=== PATIENT | male | born 1980 | race Caucasian/White ===

== ENCOUNTER 2018-01-18 17:16 | Emergency (ER) | payer SELFPAY ==
[~2018-01-18] VITALS: Ht 177.8 cm; Wt 117.9 kg
[2018-01-18 20:24] LABS: Red Cell Distribution Width 12.7 % (11.8-14.3)
[2018-01-18 20:26] LABS: Mean Corpuscular Hemoglobin 34.3 pg (28.0-32.0); Mean Corpuscular Hgb Conc. 34.7 g/dL (32.0-36.0); Mean Corpuscular Volume 98.9 fL (80.0-100.0); Platelet Count (auto) 231 10^3/uL (140-450); Red Blood Cells 4.65 10^6/uL (4.5-5.90); White Blood Cell 8.6 10^3/uL (4.4-10.8)
[2018-01-18 20:35] LABS: Basophils % (manual) 0 (0.0-2.0); Blast Cells 0; Metamyelocytes % 0; Myelocytes % 0; Promyelocytes % 0; Reactive Lymphocytes 0
[2018-01-18 20:38] LABS: Albumin 4.1 g/dL (3.4-5.0); Anion Gap 9 (5-15); Blood Urea Nitrogen 13 mg/dL (7-18); Calcium 9.4 mg/dL (8.5-10.1); Carbon Dioxide 23 mmol/L (21-32); Chloride 104 mmol/L (98-107); Glucose 103 mg/dL (74-106); Magnesium 2.4 mg/dL (1.6-2.6); Sodium 136 mmol/L (136-145)
[2018-01-18 20:41] LABS: Alanine Aminotransferase 76 U/L (16-61); Alkaline Phosphatase 46 U/L (45-117); Aspartate Aminotransferase 46 U/L (15-37); BUN/Creatinine Ratio 11.9; Bilirubin, Total 0.4 mg/dL (0.2-1.0); GFR African American 98 mL/min; GFR Non-African American 81 mL/min; INR 0.96 (0.9-1.15); Partial Thromboplastin Time 25.1 sec (23.78-33.04); Prothrombin Time 10.3 sec (9.27-12.13); Total Protein 8.3 g/dL (6.4-8.2)
[2018-01-18 21:11] LABS: Band Neutrophils % (manual) 2; Eosinophils % (manual) 1 (0-7); Lymphocytes % (manual) 30 (10.0-50.0); Monocytes % (manual) 12 (0-12)
[2018-01-19 00:06] VITALS: BP 130/85
== END 2018-01-19 01:05 | disposition home or self-care (01) ==
LOC: ER 17:22
DX: R00.0 Tachycardia, unspecified (principal); F41.9 Anxiety disorder, unspecified; Z88.0 Allergy status to penicillin
CPT/HCPCS: 36415; 71045; 80053; 83735; 83880; 84443; 84484; 85007; 85027; 85610; 85730

== ENCOUNTER 2025-01-19 16:44 | Emergency (ER) | payer BC ==
[~2025-01-19] VITALS: Ht 177.8 cm; Wt 127.5 kg
--- NOTE | 2025-01-19 18:54 | DVH ---
Clinical History: RIGHT LOWER EXTREMITY pain swelling Comparison: None Technique: Duplex Doppler evaluation of the deep venous system of the RIGHT lower extremity from the common femo ral vein to the popliteal vein including color Doppler and spectral/pulsed waveform analysis was perf ormed. Findings: The common femoral vein demonstrates appropriate compressibility and waveform variability. There is compressibility/patency of the great saphenous vein at the proximal thigh. The femoral vein demonstrates appropriate compressibility and waveform variability. The deep femoral vein demonstrates appropriate compressibility and waveform variability. The popliteal vein demonstrates appropriate compressibility and waveform variability. There is normal compressibility at the tibioperoneal trunk. Impression: 1. No RIGHT deep venous thrombosis. 2. If clinical concern/symptoms persist or worsen, short-interval follow-up study is suggested. 3. Multiple enlarged lymph nodes in the right inguinal area
[2025-01-19 18:55] LABS: Hemoglobin 14.7 g/dL (13.5-17.5)
[2025-01-19 18:57] LABS: Hematocrit 40.7 % (41.0-53.0); Mean Corpuscular Hemoglobin 35.3 pg (28.0-32.0); Mean Corpuscular Volume 97.6 fL (80.0-100.0); Nucleated Red Blood Cells % 0.1 %
[2025-01-19 19:09] LABS: Albumin 4.6 g/dL (3.2-4.8); Alkaline Phosphatase 51 U/L (46-116); Anion Gap 12 (5-15); BUN/Creatinine Ratio 13.9 (10.0-20.0); Bilirubin, Total 0.7 mg/dL (0.2-1.0); Blood Urea Nitrogen 14 mg/dL (9-23); Calcium 9.3 mg/dL (8.7-10.4); Carbon Dioxide 27 mmol/L (20-31); Chloride 101 mmol/L (98-107); Potassium 3.5 mmol/L (3.5-5.1); Sodium 140 mmol/L (136-145); Total Protein 7.5 g/dL (5.7-8.2)
[2025-01-19 19:14] LABS: Alanine Aminotransferase 50 U/L (7-40); Glucose 117 mg/dL (74-106)
[2025-01-19] MEDS ORDERED: CLIN1CAP70 PO (19:21)
--- NOTE | 2025-01-19 19:22 | ED.PDOC ---
Musculoskeletal HPI Comments HPI: Poor Historian. 44-year-old male presents to emergency department for evaluation of right anterior nettles redness and pain that he noticed yesterday. Denies any trauma or injury. Patient states he has subjective fever on Wednesday and took some Tylenol. Denies any other acute symptoms. Findings are consistent with cellulitis. Past Medical History: Denies any Past Surgical History: Denies any REVIEW OF SYSTEMS: CONSTITUTIONAL: Denies acute: fever, diaphoresis, chills, generalized weakness. HEAD: Denies acute: headache, photophobia Eyes: Denies acute: Double vision, vision loss, eye pain, eye discharge. EARS: Denies acute: tinnitus, hearing loss, ear discharge, ear pain, THROAT: Denies acute: sore throat, swelling, difficulty swallowing , pain with swallowing, change in voice. NECK: Denies acute: neck pain, neck swelling, stiff neck. HEART: Denies acute : chest pain, palpitations, LUNGS: Denies acute: SOB, wheezing, cough, hemoptysis ABDOMEN: Denies acute: abdominal pain, Nausea, Vomiting, diarrhea, melena , hematemesis, hematochezia SKIN: Denies acute: itchiness. EXTREMITIES: Denies acute: calf pain, numbness, tingling, weakness, Denies acute: Low back pain. Neuro: Denies acute: focal neurological deficit, motor or sensory focal neurological deficit, tremors, seizure like activity, confusion, dizziness, change in mental status, loss of bowel or bladder function, cauda equina like symptoms. : Denies acute: dysuria, hematuria, flank pain, increase in urinary frequency. PSYCH: Denies acute: hallucination, suicidal ideation, homicidal ideation. PHYSICAL EXAM: General: -----mild---acute distress, awake and alert. Head: normocephalic, atraumatic. No raccoon's eyes, no rm sign. Neck: supple, trachea is midline, no swelling. Throat: Normal phonation. Eyes:, no erythema, no purulent discharge, no proptosis, no icterus. Heart: regular rate, regular rhythm, no significant murmur appreciated. Lungs: no apparent respiratory distress, Able to speak in full sentences. No wheezing, no rhonchi, no crackles. No stridors Clear to auscultation bilaterally. Abdomen: non tender to palpation, non distended, soft, no guarding, no rebound, + bowel sounds. Neuro: Awake, Alert, oriented to name, self, situation, follows commands GCS=15. Speech is normal. Skin: no petechia, no purpura, no cyanosis, non-pale, not jaundice. Lower extremities: --right lower extremity 2/4 - Pitting edema no deformity, no calf TTP. Area of complaint: Right anterior nettles erythema and tenderness to palpation and pitting edema. No calf tenderness in the affected extremity. Makes eye contact. moves all four extremities. Face: no apparent facial droop. Ambulating in the ED independently. Pedal pulses are palpable. ED COURSE: DISCLAIMER: This medical document was created using an electronic medical record system with voice recognition software and computerized dictation system. Although this document has been carefully reviewed, there might still be some phonetic and typographical errors. Occasional wrong-word or "sound-alike" substitutions may have occurred due to the inherent limitations of voice recognition software. These areas are purely typographical due to imperfections of the software programs and do not reflect any compromise in the patient's medical care. Please read the chart carefully and recognize, using context, where these substitutions have occurred. Chief Complaint: Lower Extremity Time Seen by MD: 18:13 Primary Care Provider: NONE Reviewed Notes: Nurses Notes, Allergies Allergies: Coded Allergies: Penicillins (Unverified Allergy, Unknown, 07/29/15) Home Meds Active Scripts Clindamycin Hcl (Clindamycin Hcl) 300 Mg Cap, 1 CAP PO TID for 7 Days, #21 CAP Prov:KARLA HARDY Terry WING 01/19/25 Information Source: Patient Mode of Arrival: Ambulatory Location: Right Past Medical History PAST MEDICAL HISTORY: Denies Family History Family History: Unknown Social History Smoker: Non-Smoker Alcohol: Occasionally Drugs: Denies Drug Use Lives In: Home Was a procedure done? Was a procedure done?: No Differential Diagnosis EXT Differential Diagnosis: Cellulitis, CHF, Deep Vein Thrombosis, Compartment Syndrome, Fracture, Sprain, Dislocation, Laceration, Gout, DJD, Contusion, Strain, Rheumatoid, Septic, Hernia, Neurovascular injury, Arthritis, Bursitis, Other (Leg swellingDdx include but not limited to DVT, ischemic limb, pitting edema, volume overload, CHF, cellulitis, hematoma, compartment syndrome, dependent edema, venous stasis. Necrotizing fasciitis, abscess, infestation.) X-Ray, Labs, Meds, VS Vital Signs Date Time Temp Pulse Resp B/P (MAP) Pulse Ox O2 Delivery O2 Flow Rate FiO2 01/19/25 16:50 98.5 88 16 161/93 98 98.5 Lab Test 01/19/25 18:24 Range/Units White Blood Count 5.6 4.4-10.8 10^3/uL Red Blood Count 4.17 L 4.5-5.90 10^6/uL Hemoglobin 14.7 13.5-17.5 g/dL Hematocrit 40.7 L 41.0-53.0 % Mean Corpuscular Volume 97.6 80.0-100.0 fL Mean Corpuscular Hemoglobin 35.3 H 28.0-32.0 pg Mean Corpuscular Hemoglobin Concent 36.2 H 32.0-36.0 g/dL Red Cell Distribution Width 12.3 11.8-14.3 % Platelet Count 238 140-450 10^3/uL Mean Platelet Volume 7.0 6.9-10.8 fL Neutrophils (%) (Auto) 55.5 37.0-80.0 % Lymphocytes (%) (Auto) 32.6 10.0-50.0 % Monocytes (%) (Auto) 10.7 0.0-12.0 % Eosinophils (%) (Auto) 0.8 0.0-7.0 % Basophils (%) (Auto) 0.4 0.0-2.0 % Neutrophils # (Auto) 3.1 1.6-8.6 10 ^3/uL Lymphocytes # (Auto) 1.8 0.4-5.4 10 ^3/uL Monocytes # (Auto) 0.6 0-1.3 10 ^3/uL Eosinophils # (Auto) 0 0-0.8 10 ^3/uL Basophils # (Auto) 0 0-0.2 10 ^3/uL Nucleated Red Blood Cells 0.1 % Erythrocyte Sedimentation Rate Pending Sodium Level 140 136-145 mmol/L Potassium Level 3.5 3.5-5.1 mmol/L Chloride Level 101 98-107 mmol/L Carbon Dioxide Level 27 20-31 mmol/L Anion Gap 12 5-15 Blood Urea Nitrogen 14 9-23 mg/dL Creatinine 1.01 0.700-1.30 mg/dL Glomerular Filtration Rate Calc 95 >90 mL/min BUN/Creatinine Ratio 13.9 10.0-20.0 Serum Glucose 117 H 74-106 mg/dL Lactic Acid Level 1.1 0.4-2.0 mmol/L Calcium Level 9.3 8.7-10.4 mg/dL Total Bilirubin 0.7 0.2-1.0 mg/dL Aspartate Amino Transferase (AST) 33 13-40 U/L Alanine Aminotransferase (ALT) 50 H 7-40 U/L Alkaline Phosphatase 51 46-116 U/L C-Reactive Protein High Sensitivity 9.20 H <1.0 mg/dL B-Type Natriuretic Peptide 1.15 0-100 pg/mL Total Protein 7.5 5.7-8.2 g/dL Albumin 4.6 3.2-4.8 g/dL [place] [id number] Ph: [phone] DIAGNOSTIC IMAGING Diagnostic Imaging Report : [id number] Signed PATIENT: BERTO KRISHNA ACCT: [id number] UNIT: [id number] : 1980 LOC: ER ROOM / BED: / AGE / SEX: 44 / M ADM STATUS: REG ER SERVICE 14 ORDERING PHYSICIAN: KARLA HARDY DO PROCEDURE(s): RLDVT - RT Lower DVT REASON: pain swelling ORDER NUMBER(s): [id number], ACCESSION NUMBER(s): [id number] Clinical History: RIGHT LOWER EXTREMITY pain swelling Comparison: None Technique: Duplex Doppler evaluation of the deep venous system of the RIGHT lower extremity from the common femoral vein to the popliteal vein including color Doppler and spectral/pulsed waveform analysis was performed. Findings: The common femoral vein demonstrates appropriate compressibility and waveform variability. There is compressibility/patency of the great saphenous vein at the proximal thigh. The femoral vein demonstrates appropriate compressibility and waveform variability. The deep femoral vein demonstrates appropriate compressibility and waveform variability. The popliteal vein demonstrates appropriate compressibility and waveform variability. There is normal compressibility at the tibioperoneal trunk. Impression: 1. No RIGHT deep venous thrombosis. 2. If clinical concern/symptoms persist or worsen, short-interval follow-up study is suggested. 3. Multiple enlarged lymph nodes in the right inguinal area ATED BY: SPENCER AUSTIN Jr., DO DICTATED DATE/TIME: 01/19/251850 SIGNED BY: SPENCER AUSTIN Jr., SIGNED DATE/TIME: 01/19/251850 CC: Time of 1ST Reevaluation: 19:33 Reevaluation 1ST: Unchanged Patient Education/Counseling: Diagnosis, Treatment Family Education/Counseling: Other Comments MDM: patient presented with the above HPI.---right leg redness and swelling and pain---workup was initiated. patient was found with the above mentioned diagnosis. the following medications were ordered: please refer to order lists of meds and tests obtained by myself Dr. Hardy. Patient ED course and VS have been stabilized. Patient has been reassessed in the ED and remained in a stable condition. Pertinent incidental findings were discussed with the patient and/or family. Patient/family voices understanding and is agreeable with plan. Patient has been observed in the ED adequate length of time to insure improvement/stability. Escalation of care considered: Consideration of escalation to observation or admission Findings are consistent with cellulitis with presence of inguinal lymph node and elevated CRP inflammatory markers. Patient was given oral antibiotics here and a prescription as an outpatient as well. Ultrasound ruled out DVT Patient was DISCHARGED home in a stable condition. All the reports of any imaging studies that were ordered by myself were reviewed by myself. Sepsis Sepsis Reasesment Focused Exam Orders: Laboratory Tests 01/19/25 18:24: Lactic Acid Level 1.1 Departure 1 Departure Time of Disposition: 19:19 Impression: Primary Impression: Cellulitis of lower extremity Disposition: 01 HOME / SELF CARE / HOMELESS Condition: Stable Additional Instructions: Additional instructions: Please read all instructions provided in this packet carefully. You MUST follow-up with your primary care/family doctor in 1 to 2 days. If you are unable to see your primary care/family doctor, please return to our emergency room for re-assessment and re-evaluation in 1 to 2 days. Return to the emergency room here in our facility or to the nearest ER [facility] if your symptoms change or worsen. CONSULTATIONS: you MUST Follow-up for consultation as soon as possible with: -vascular medicine in 1-2 days. Please call for appointment. You MUST call the consultants office yourself to make an appointment. You may need to arrange that through your insurance and/or your primary/family doctor. If you are unable to see the corporate health consultant in 1 to 2 days, you must return to our emergency room (or any other ER of your choice) for re-assessment and re- evaluation. Adequate fluid hydration. Although you have been discharged from the Emergency Department, this does not mean that you have a "clean bill of health". No definitive diagnosis for your symptoms has been made today. It is possible that you are in the process of developing a serious illness. This is why you must return to the ED without fail if any new or worsening symptoms develop. Repeat ultrasound in 4-5 days if symptoms change or worsen. Below is a copy of your radiological report for follow up: [place] [id number] Ph: [phone] DIAGNOSTIC IMAGING Diagnostic Imaging Report : [id number] Signed PATIENT: BERTO KRISHNA ACCT: [id number] UNIT: [id number] : 1980 LOC: ER ROOM / BED: / AGE / SEX: 44 / M ADM STATUS: REG ER SERVICE 14 ORDERING PHYSICIAN: KARLA HARDY DO PROCEDURE(s): RLDVT - RT Lower DVT REASON: pain swelling ORDER NUMBER(s): [id number], ACCESSION NUMBER(s): [id number] Clinical History: RIGHT LOWER EXTREMITY pain swelling Comparison: None Technique: Duplex Doppler evaluation of the deep venous system of the RIGHT lower extremity from the common femoral vein to the popliteal vein including color Doppler and spectral/pulsed waveform analysis was performed. Findings: The common femoral vein demonstrates appropriate compressibility and waveform variability. There is compressibility/patency of the great saphenous vein at the proximal thigh. The femoral vein demonstrates appropriate compressibility and waveform variability. The deep femoral vein demonstrates appropriate compressibility and waveform variability. The popliteal vein demonstrates appropriate compressibility and waveform vari ability. There is normal compressibility at the tibioperoneal trunk. Impression: 1. No RIGHT deep venous thrombosis. 2. If clinical concern/symptoms persist or worsen, short-interval follow-up study is suggested. 3. Multiple enlarged lymph nodes in the right inguinal area ATED BY: SPENCER AUSTIN Jr., DO DICTATED DATE/TIME: 01/19/251850 SIGNED BY: SPENCER AUSTIN Jr., SIGNED DATE/TIME: 01/19/251850 CC: e-Prescriptions Clindamycin Hcl (Clindamycin Hcl) 300 Mg Cap 1 CAP PO TID for 7 Days, #21 CAP Prov: AKRLA HARDY DO 01/19/25 Discharged With: Self Critical Care Note Critical Care Time?: No I personally scribed for KARLA HARDY DO ([email or web address]) on 01/19/25 at 19:32. Electronically submitted by [place] ([email or web address]). KARLA HARDY DO Jan 19, 2025 19:22
[2025-01-19] MEDS: CLINDAMYCIN HCL 150 MG CAP PO ONE (19:30)
[2025-01-19 19:56] VITALS: BP 150/92; PULSE 82; TEMP 98.9
[2025-01-19 19:58] VITALS: RESP 18; O2SAT 98
== END 2025-01-19 19:49 | disposition home or self-care (01) ==
LOC: ER 16:47
DX: L03.115 Cellulitis of right lower limb (principal); F10.90 Alcohol use, unspecified, uncomplicated; Z88.0 Allergy status to penicillin; Z79.899 Other long term (current) drug therapy; Y90.9 Presence of alcohol in blood, level not specified
CPT/HCPCS: 36415; 80053; 83605; 83880; 85025; 85652; 86141; 93971